=== PATIENT | female | born 1980 | race Caucasian/White ===

== ENCOUNTER 2020-06-16 17:17 | Emergency (ER) | payer OTHER ==
[2020-06-17] MEDS ORDERED: ONDA4TAB6 PO (10:22)
[2020-06-17] MEDS ORDERED: AMOX500C2 PO (10:22)
[2020-06-17] MEDS ORDERED: HYDR-3965 PO (10:22)
[2020-06-17] MEDS ORDERED: METH4TAB81 PO (10:22)
== END 2020-06-16 19:15 | disposition left against medical advice (07) ==
LOC: ER 17:18
DX: K08.89 Other specified disorders of teeth and supporting structures (principal); Z53.21 Procedure and treatment not carried out due to patient leaving prior to being seen by health care provider

== ENCOUNTER 2020-06-17 09:49 | Emergency (ER) | payer OTHER ==
[~2020-06-17] VITALS: Ht 157.5 cm; Wt 82.2 kg
[2020-06-17 09:52] VITALS: BP 121/84
[2020-06-17] MEDS ORDERED: HYDR-3965 PO (10:22)
[2020-06-17] MEDS ORDERED: ONDA4TAB6 PO (10:22)
[2020-06-17] MEDS ORDERED: METH4TAB81 PO (10:22)
[2020-06-17] MEDS ORDERED: AMOX500C2 PO (10:22)
[2020-06-17] MEDS ORDERED: HYDROcodone/acetaminophen 10/325mg tab PO ONE (10:35)
[2020-06-17] MEDS ORDERED: ondansetron 4mg rapidly disintigrating tab PO ONE (10:35)
== END 2020-06-17 10:57 | disposition home or self-care (01) ==
LOC: ER 09:49
DX: K04.7 Periapical abscess without sinus (principal); K02.9 Dental caries, unspecified; K08.89 Other specified disorders of teeth and supporting structures; Z72.89 Other problems related to lifestyle; Z79.2 Long term (current) use of antibiotics; Z79.899 Other long term (current) drug therapy
CPT/HCPCS: 99283

== ENCOUNTER 2025-02-12 10:34 | Emergency (ER) | payer MEDICAID ==
[~2025-02-12] VITALS: Ht 157.5 cm; Wt 80.9 kg
[~2025-02-12 10:34] MED LIST: METH4TAB81 PO; ONDA4TAB6 PO
[2025-02-12] MEDS ORDERED: PRED20TA PO (11:05)
--- NOTE | 2025-02-12 11:06 | Physician Documentation ---
History of Present Illness ~ Chief Complaint: Rash Stated Complaint: ALLERGIC REACTION Time Seen by MD: 10:55 Primary Medical Doctor: Sujit Wade Source: patient Mode of Arrival: POV Exam Limitations: no limitations HPI 45-year-old female here with diffuse rash over her face extremities and chest which she states is due to poison oak. She has had this several times before. She was exposed to poison oak about four days ago. Pre arrival treatment with calamine lotion has not helped with the itching. Itching has been keeping her awake all night. She has swelling on her face and around her eyes as well. No cp, shortness of breath, difficulty swallowing, fever, chills. Medication Reconciliation Allergies: Coded Allergies: No Known Allergies (Unverified , 02/12/25) Scheduled Methylprednisolone (Medrol Dosepak), 1 TAB PO UD Scheduled PRN Ondansetron Hcl (Zofran), 1 TAB PO Q6H PRN for nausea/vomiting Past Medical History Past Medical History: No Pertinent History, Past Surgical History: no surgical history Alcohol Use: Occasionally Lives In: Home Review of Systems All Other Systems at this time: Reviewed and Negative Physical Exam Vital Signs: Temperature: 98.5, Source: Temporal, Heart Rate: 87, Respiratory Rate: 16, BP: 141/85, Pulse Oximetry: 99, Weight: 80.910 Oxygen Flow Rate: 0 Physical Exam General Appearance: Alert, WD/WN. NAD. HEENT: NCAT, PERRL, EOMI. Posterior pharyngeal wall normal, Neck: Supple, trachea midline. Cardiovascular: RRR. No m/r/g. Lungs: CTAB. Breathing unlabored Extremities: Normal inspection. No edema. Skin: Warm/dry, diffuse erythematous macular rash over face upper chest and arms . Swelling around the left and right eyes, bulbar conjunctiva clear. Neurological: Alert and oriented x4, normal gait. Psychiatric: Affect congruent with mood. Progress Results/Orders Results/Orders Vital Signs 02/12/25 10:42 Temp 98.5 Pulse 87 Resp 16 B/P (MAP) 141/85 Pulse Ox 99 O2 Flow Rate 0 Medical Decision Making Differential Dx:Considerations: Include: Abscess, AIDS/HIV, Anthrax (cutaneous), Atopic dermatitis, Candidiasis, Contact dermatitis, Drug reaction, Erythema multiforme, Erysipelas, Gangrene, Herpes zoster, Herpes simplex, Hidradenitis suppurativa, Impetigo, Intertrigo, Lymes disease, Molluscum contagiosum, Osteomyelitis, Pediculosis, Pityriasis rosea, Psoriaisis, RMSF, Rosacea, Scabies, Scarlet fever, Tinea, Urticaria, Varicella, Viral exanthema, O ther Additional Comment Patient has classic contact dermatitis there was no evidence for secondary bacterial infection. Departure Time of Disposition: 11:04 Disposition: 01 HOME / SELF CARE / HOMELESS Impression: Primary Impression: Allergic contact dermatitis Qualified Codes: L23.7 - Allergic contact dermatitis due to plants, except food Condition: Stable Discharge Instructions: Contact Dermatitis, [id number] Additional Instructions: START PREDNISONE TOMORROW WE GAVE YOU KENALOG HERE YOU CAN TAKE BENADRYL WELL Referrals: NO PRIMARY CARE PROVIDER (PCP) Prescriptions Prednisone* (Prednisone*) 20 Mg Tablet 2 TAB PO DAILY, #10 TAB Prov: LEIGH ANN SORIANO 02/12/25 Education Educated: Patient Educated regarding: diagnosis, treatment, need for follow up Signature Scribe Signature: X Attestation: LEIGH ANN SEBASTIAN Feb 12, 2025 11:06
[2025-02-12] MEDS: triamcinolone acetonide 40mg/ml inj IM ONE (11:10)
[2025-02-12 11:41] VITALS: BP 147/78; PULSE 88; RESP 16; TEMP 98.5; O2SAT 100
== END 2025-02-12 11:23 | disposition home or self-care (01) ==
LOC: ER 10:35
DX: L23.7 Allergic contact dermatitis due to plants, except food (principal)
CPT/HCPCS: 99283; J3301